=== PATIENT | female | born 1965 | race Caucasian/White ===

== ENCOUNTER → 2016-07-19 | Outpatient (CLI) | payer OTHER ==
[2016-07-20 13:47] LABS: Honeybee Venom IgE Class CLASS 0
[2016-07-20 13:48] LABS: White-Faced Hornet IgE <0.35 kU/L (<0.35); White-Faced Hornet IgE Class CLASS 0; Yellow Jacket IgE Class CLASS 0
[2016-07-24 13:54] LABS: Mis test requested (Blood) Wasp IgE
== END | disposition home or self-care (01) ==
LOC: LABWHC1 11:01
PROVIDERS: ATTEND Allergy & Immunology
DX: T63.441A Toxic effect of venom of bees, accidental (unintentional), initial encounter (principal)
CPT/HCPCS: 36415; 86003

== ENCOUNTER → 2016-07-24 | Outpatient (CLI) | payer OTHER ==
--- NOTE | 2016-07-24 08:03 | CT ---
EXAMINATION TYPE: CT abdomen pelvis w con DATE OF EXAM: 07/24/2016 7:37 AM COMPARISON: CT abdomen and pelvis June 09, 2015. HISTORY: Prior study on PACS. Patient had hernia surgery last year and has been having trouble with c ramping, bloating and constipation since surgery. Constipation and abdominal/pelvic pain per order. CT DLP: 342.30mGycm Automated Exposure Control for Dose Reduction was Utilized. CONTRAST: CT scan of the abdomen and pelvis is performed with oral and with IV Contrast, patient injected with 100 mL of Omnipaque 300. FINDINGS: Patient has very little intra-abdominal fat making evaluation somewhat suboptimal. LUNG BASES: No significant abnormality is appreciated. LIVER/GB: No significant abnormality is appreciated. PANCREAS: No significant abnormality is seen. SPLEEN: No significant abnormality is seen. ADRENALS: No significant abnormality is seen. KIDNEYS: No significant abnormality is seen. BOWEL: Surgical changes at diaphragmatic hiatus are consistent with Marcelino fundoplication surgery. No suspicious recurrent hiatal hernia is evident. The oral contrast reaches level of the splenic flexur e. There is no suspicious small bowel dilatation. There is somewhat prominent contrast and fecal fill ed colon up to level of the proximal to mid sigmoid colon which is somewhat redundant. No obvious con stricting mass is present. UTERUS/ADNEXA: No gross abnormality seen. LYMPH NODES: No greater than 1cm abdominal or pelvic lymph nodes are appreciated. OSSEOUS STRUCTURES: There are bilateral pars defects at L5 level. There is slight grade 1 anterolisth esis of L5 on S1 measuring roughly 5 mm from posterior vertebral body margin. There is moderate disc space narrowing at L5-S1 level present. OTHER: No significant additional abnormality is seen. IMPRESSION: Overall nonobstructive bowel gas pattern. There is persistent moderate to severe colonic fecal stasis involving predominantly the transverse and left colon with some involvement of the proxi mal redundant sigmoid colon. This has similar appearance to prior exam. No significant change. No sig nificant new findings seen.
== END | disposition home or self-care (01) ==
LOC: RADCTMAIN 07:09
PROVIDERS: ATTEND Internal Medicine
DX: K59.8 Other specified functional intestinal disorders (principal)
CPT/HCPCS: 74177; Q9967

== ENCOUNTER → 2017-09-05 | Outpatient (CLI) | payer OTHER ==
--- NOTE | 2017-09-06 08:45 | CT ---
EXAMINATION TYPE: CT abdomen pelvis w con DATE OF EXAM: 09/05/2017 COMPARISON: NONE INDICATION: ABDOMINAL PAIN X4 WEEKS DLP: 430.5 mGycm, Automated exposure control for dose reduction was used. CONTRAST: 100 mL of Omnipaque 300. Study performed with Oral Contrast TECHNIQUE: Axial images were obtained from above the diaphragm to the pubic rami in the axial plane a t 5 mm thick sections. Reconstructed images are reviewed on the computer in the coronal plane. FINDINGS: Limited CT sections are obtained the lung bases. The lung bases are clear. CT ABDOMEN: Liver: Normal Spleen: Normal Pancreas: Normal Adrenal glands: The adrenal glands are normal. Gallbladder: Normal Kidneys: No masses are evident. No hydronephrosis is present. No cysts are present. Delayed images were obtained through the kidneys, which remain unremarkable. Aorta: Vascular calcification is within the aorta. Inferior vena cava: Normal. CT PELVIS: Loops of bowel within the abdomen and pelvis are normal. There are loops of bowel which are incom pletely distended or lack oral contrast limiting their evaluation. No suspicious mesenteric inflammat ory changes are evident. Some fecal debris is within the sigmoid colon. Appendix: Normal as visualized. No inflammatory changes are adjacent. Urinary bladder: Decompressed with somewhat limited visualization. Genitourinary structures: Uterus is unremarkable. Adnexal regions are clear. No free fluid is within the pelvis. Osseous structures: No suspicious lytic or sclerotic lesions. IMPRESSIONS: 1. No suspicious changes to account for abdominal pain.
== END | disposition home or self-care (01) ==
LOC: RADCTMAIN 16:55
PROVIDERS: ATTEND Internal Medicine
DX: R10.9 Unspecified abdominal pain (principal); Z88.5 Allergy status to narcotic agent
CPT/HCPCS: 74177; Q9967

== ENCOUNTER 2017-10-11 09:51 | Day surgery (SDC) | payer OTHER ==
[2017-10-09 15:06] VITALS: BMI 22.4
[~2017-10-11 09:51] MED LIST: LIDOCAINE 1% 20 ML VIAL (10MG/ML) FOR IV START INTRADERMA PRN
[2017-10-11 10:20] VITALS: RESP 16; TEMP 98.1
[2017-10-11] MEDS: LACTATED RINGERS 1,000 ML IV SCH ×2 (10:27→11:07)
[2017-10-11] MEDS ORDERED: PROPOFOL 10 MG/ML 20 ML VIAL IV ONE (11:08)
--- NOTE | 2017-10-11 11:48 | P.PCN ---
Date of Procedure: 10/11/17 Procedure(s) Performed: Procedure: Total colonoscopy. Preoperative diagnosis: Abdominal pain and change in bowel habits. Postoperative diagnosis: Exam within normal limits. Preparation: HalfLytely prep. Sedation: Was provided by anesthesia. Brief clinical history: The patient is a 52-year-old female who I have evaluated by in October 2015 for abdominal pain, history of gastroesophageal reflux and change in bowel habits. At that time she had poor colon preparation but no obvious pathology. I recommended repeat exam in a short order of time. This time she is referred because of a week of abdominal pain and diarrhea. Normally, she would have a bowel movement every week or more. No bleeding or other alarm symptoms. Procedure: With the patient on her left lateral decubitus position and after informed consent and adequate sedation, the perianal area was inspected and it did not show any fissures or fistulas. There were no masses felt on digital rectal examination. The Olympus CFQ 160L video colonoscope was then inserted in the rectum in the usual fashion and advanced to the cecum. The preparation was fair. No obvious pathology was seen. The mucosa appeared healthy. I retroflexed the endoscope in the rectum before the endoscope was withdrawn. The patient tolerated the procedure well. Plan: The patient was reassured. Discussed dietary measures and symptomatic treatment. She will follow-up with you as planned and I recommended repeat exam in 10 years.
[2017-10-11 12:13] VITALS: BP 109/62; PULSE 59
== END 2017-10-11 12:25 | disposition home or self-care (01) ==
LOC: ORWHC2ENDO 09:51
DX: R10.9 Unspecified abdominal pain (principal); R19.4 Change in bowel habit; R19.7 Diarrhea, unspecified; G43.909 Migraine, unspecified, not intractable, without status migrainosus; G40.909 Epilepsy, unspecified, not intractable, without status epilepticus; E07.9 Disorder of thyroid, unspecified; Z88.5 Allergy status to narcotic agent; Z79.890 Hormone replacement therapy; Z79.899 Other long term (current) drug therapy
CPT/HCPCS: 45378; J2704

== ENCOUNTER → 2018-01-03 | Outpatient (CLI) | payer OTHER ==
[2018-01-03 13:10] LABS: Cholesterol 154 mg/dL (<200); HDL Cholesterol 57 mg/dL (40-60); LDL Cholesterol,Calculated 84 mg/dL (0-99); Triglycerides 65 mg/dL (<150)
== END | disposition home or self-care (01) ==
LOC: LABWHC1 11:17
PROVIDERS: ATTEND Nurse Practitioner Adult Health
DX: E78.5 Hyperlipidemia, unspecified (principal); B96.81 Helicobacter pylori [H. pylori] as the cause of diseases classified elsewhere
CPT/HCPCS: 36415; 80061; 83013

== ENCOUNTER 2018-02-25 11:48 | Day surgery (SDC) | payer OTHER ==
[2018-02-22 08:34] VITALS: BMI 20.5
[~2018-02-25 11:48] MED LIST changes: +LACTATED RINGERS 1,000 ML IV SCH
[2018-02-25 12:18] VITALS: TEMP 97.8
[2018-02-25] MEDS ORDERED: PROPOFOL 10 MG/ML 20 ML VIAL IV ONE (12:52)
[2018-02-25] MEDS ORDERED: LIDOCAINE 1% INJ 10MG/ML (20 ML MDV) ONE (12:52)
[2018-02-25] MEDS ORDERED: fentaNYL (PF) 50 MCG/ML 2 ML AMP ONE (12:52)
--- NOTE | 2018-02-25 13:20 | P.PCN ---
Date of Procedure: 02/25/18 Procedure(s) Performed: Procedure: Esophagogastroduodenoscopy and biopsy. Preoperative diagnosis: Epigastric pain and history of H. pylori infection and esophagitis. Postoperative diagnosis: 1. S/P Rodriguez fundoplication and no definite esophagitis. 2. Antral gastritis. 3. Multiple biopsies obtained from the antrum and esophagus. Preparation and sedation: Was provided by anesthesia. Brief clinical history: The patient is a 52-year-old female with history of H. pylori infection treated on 2 different occasions in the past. Her last upper endoscopy was in October 2015. She had normal colonoscopy in September of this year. The patient continues to have epigastric pains and this evaluation is scheduled to assess for peptic ulcer disease or other pathology. Procedure: With the patient on her left lateral decubitus position and after informed consent and adequate sedation, I passed the Olympus-GIF 160 video upper endoscope through the cricopharyngeus down the esophagus. The endoscope was then passed into the stomach which was insufflated with air and inspected in detail including the retroflex view in the cardia. Finally, the endoscope was passed through the pylorus into the duodenum. Pyloric channel, duodenal bulb, post bulbar area and descending duodenum appeared within normal limits. The stomach showed mottling, erythema and friability most noted in the antrum and prepyloric area. In the retroflex view in the cardia, there was evidence of prior fundoplication. The esophagus did not show any obvious esophagitis or strictures. I obtained biopsies from the antrum and esophagus then the endoscope was withdrawn. The patient tolerated the procedure well. Plan: The patient was reassured. Will await biopsy results. She will follow- up with you as planned and I will see her in follow-up at keep you updated on her progress.
[2018-02-25 13:37] VITALS: BP 106/70; PULSE 68; RESP 16
[2018-02-25] MEDS ORDERED: MIDAZOLAM 2 MG/2 ML VIAL IV PRN (18:56)
[2018-02-25] MEDS ORDERED: LIDOCAINE 1% 20 ML VIAL (10MG/ML) FOR IV START INTRADERMA PRN (18:56)
[2018-02-25] MEDS ORDERED: LACTATED RINGERS 1,000 ML IV SCH (19:00)
== END 2018-02-25 13:47 | disposition home or self-care (01) ==
LOC: ORWHC2ENDO 11:48
DX: K20.9 Esophagitis, unspecified (principal); K44.9 Diaphragmatic hernia without obstruction or gangrene; I20.9 Angina pectoris, unspecified; Z87.891 Personal history of nicotine dependence; E07.9 Disorder of thyroid, unspecified; G43.909 Migraine, unspecified, not intractable, without status migrainosus; G40.909 Epilepsy, unspecified, not intractable, without status epilepticus; Z79.890 Hormone replacement therapy; Z79.899 Other long term (current) drug therapy; Z88.5 Allergy status to narcotic agent
CPT/HCPCS: 88305; 88342; 43239; J2001; J3010; J2704

== ENCOUNTER 2018-03-14 07:40 | Day surgery (SDC) | payer OTHER ==
[2018-03-12 09:46] VITALS: BMI 20.5
[~2018-03-14 07:40] MED LIST changes: -LACTATED RINGERS 1,000 ML IV SCH; -LIDOCAINE 1% 20 ML VIAL (10MG/ML) FOR IV START INTRADERMA PRN; +SODIUM CHLORIDE 0.9% 1,000 ML IV SCH
[2018-03-14 08:25] VITALS: BP 125/64; RESP 18; TEMP 98.7
--- NOTE | 2018-03-14 15:58 | P.PCN ---
Preoperative Diagnosis: Symptoms Recurrent presyncope and syncope Twelve-lead ECG Sinus rhythm normal ND narrow QRS normal ST segments normal QT interval Tilt table test protocol Baseline blood pressure 96% 58 mmHg heart rate 59 beats a minute patient was tilted upright at an angle of 70 per protocol there is no change in the heart or blood pressure no evidence for neurocardiogenic syncope Impression Normal twelve-lead ECG Low blood pressure and no evidence for neuro cardiac syncope Suggest Check cortisol level
== END 2018-03-14 10:54 | disposition home or self-care (01) ==
LOC: CATHEP 07:40
PROVIDERS: ATTEND Internal Medicine Clinical Cardiac Electrophysiology
DX: R55 Syncope and collapse (principal); R07.89 Other chest pain; G89.29 Other chronic pain; R06.02 Shortness of breath; I65.23 Occlusion and stenosis of bilateral carotid arteries; F17.210 Nicotine dependence, cigarettes, uncomplicated; Z79.890 Hormone replacement therapy; Z79.899 Other long term (current) drug therapy; Z88.5 Allergy status to narcotic agent
CPT/HCPCS: 93660

== ENCOUNTER → 2018-04-09 | Outpatient (CLI) | payer OTHER ==
--- NOTE | 2018-04-09 11:50 | MM ---
Reason for exam: screening (asymptomatic). Last mammogram was performed 4 years and 5 months ago. History: Benign core biopsy of the right breast, 2009. Excisional biopsy of the right breast, 2009. Physical Findings: A clinical breast exam by your physician is recommended on an annual basis and results should be correlated with mammographic findings. MG 3D Screening Mammo W/Cad Bilateral CC and MLO view(s) were taken. Prior study comparison: November 17, 2013, bilateral MG diagnostic mammo w CAD KATIA. June 13, 2012, CAD bilateral diagnostic mammogram. The breast tissue is heterogeneously dense. This may lower the sensitivity of mammography. No significant changes when compared with prior studies. ASSESSMENT: Benign, BI-RAD 2 RECOMMENDATION: Routine screening mammogram of both breasts in 1 year.
--- NOTE | 2018-04-09 14:44 | BD ---
EXAMINATION TYPE: Axial Bone Density DATE OF EXAM: 04/09/2018 COMPARISON: NONE CLINICAL HISTORY: 52 YR OLD FEMALE.....ICD-10 CODE: M81.0 KNOWN OSTEOPOROSIS Height: 62.5 Weight: 120 FRAX RISK QUESTIONS: Secondary Osteoporosis: YES 4. Malnutrition: YES, ANOREXIA Current Tobacco Use: YES RISK FACTORS HISTORY OF: Active: FLOYD Diet low in dairy products/other sources of calcium: NO Postmenopausal woman: NATURAL AT 46 YRS OLD Lost more than 2 inches in height since high school: YES MEDICATIONS: Thyroid Medications: YES, SYNTHROID 75 MGS, 10+ YRS Additional Medications: XANAX, REFLUX MEDS, Additional History: NO ADDITIONAL TO NOTE EXAM MEASUREMENTS: Bone mineral densitometry was performed using the [employer] System. Bone mineral density as measured about the Lumbar spine is: ----- L1-L4(G/cm2): 0.812 T Score Values are as follows: ----- L1: -3.6 ----- L2: -2.7 ----- L3: -2.8 ----- L4: -3.3 ----- L1-L4: -3.1 Bone mineral density THIS IS HER FIRST BONE DENSITY TEST......BASELINE STUDY Bone mineral density about the R hip (g/cm2): 0.661 Bone mineral density about the L hip (g/cm2): 0.644 T Score values are as follows: -----R Neck: -2.9 -----L Neck: -3.0 -----R Total: -2.7 -----L Total: -2.9 Bone mineral density BASELINE STUDY FRAX%s: THERE IS A 11.0% CHANCE OF A MAJOR OSTEOPOROTIC FX AND A 4.9% FOR HIP FX......PROBABILITY OF FX IN 10 YRS TIME IMPRESSION: Osteoporosis (T Score less than -2.5). There is increased fracture risk and therapy is usually indicated based on age. Re-Screen 1-2 years. NOTE: T-SCORE=SD OF THE YOUNG ADULT MEAN.
== END | disposition home or self-care (01) ==
LOC: RADMAMWWP 06:49
PROVIDERS: ATTEND Internal Medicine
DX: Z12.31 Encounter for screening mammogram for malignant neoplasm of breast (principal); M81.0 Age-related osteoporosis without current pathological fracture
CPT/HCPCS: 77063; 77067; 77080

== ENCOUNTER → 2018-06-27 | Outpatient (CLI) | payer OTHER | END | disposition home or self-care (01) | LOC: LABWHC1 09:25 | PROVIDERS: ATTEND Nurse Practitioner Adult Health | DX: E78.2 Mixed hyperlipidemia (principal) | CPT/HCPCS: 36415; 80061; 82550; 84450; 84460 ==

== ENCOUNTER 2018-07-23 20:27 | Observation (INO) | payer OTHER ==
--- NOTE | 2018-07-23 21:55 | XR ---
EXAMINATION: XR chest 1V portable DATE AND TIME: 07/23/2018 9:50 PM CLINICAL INDICATION: PHH; chest pain TECHNIQUE: AP upright portable COMPARISON: 07/29/2015 FINDINGS: The lungs are clear. The pleural spaces are negative. The cardiac silhouette is not enlarged. The remainder of the mediastinal silhouette is unremarkable. The skeletal structures and soft tissues are negative for acute findings. IMPRESSION: NO ACUTE PROCESS.
[2018-07-23 21:59] LABS: Basophils % (A) 0 %; Eosinophils # (A) 0.2 k/uL (0-0.7); Eosinophils % (A) 2 %; HGB 12.9 gm/dL (11.4-16.0); Lymphocytes # (A) 2.5 k/uL (1.0-4.8); Lymphocytes % (A) 36 %; MCH 32.4 pg (25.0-35.0); MCHC 33.1 g/dL (31.0-37.0); MCV 97.8 fL (80.0-100.0); Mean Platelet Volume 7.9; Monocytes # (A) 0.5 k/uL (0-1.0); Monocytes % (A) 7 %; Neutrophils # (A) 3.8 k/uL (1.3-7.7); Neutrophils % (A) 53 %; Platelet Count 235 k/uL (150-450); RBC 3.99 m/uL (3.80-5.40); RDW 13.2 % (11.5-15.5); WBC 7.1 k/uL (3.8-10.6)
[2018-07-23 22:02] LABS: Albumin 3.9 g/dL (3.5-5.0); Calcium 8.9 mg/dL (8.4-10.2); Creatine Kinase 56 U/L (30-135); Potassium 3.9 mmol/L (3.5-5.1); Total Bilirubin 0.4 mg/dL (0.2-1.3); Total Protein 6.9 g/dL (6.3-8.2)
[2018-07-23 22:10] LABS: INR 0.9 (<1.2); Partial Thromboplastin Time 25.1 sec (22.0-30.0); Prothrombin Time 9.9 sec (9.0-12.0)
[2018-07-23 22:13] LABS: D-Dimer 0.61 mg/L FEU (<0.60)
[2018-07-23 22:14] LABS: Creatine Kinase MB 0.4 ng/mL (0.0-2.4); Troponin I <0.012 ng/mL (0.000-0.034)
--- NOTE | 2018-07-23 22:53 | ED ---
Chest Pain HPI - General Chief Complaint: Chest Pain Stated Complaint: Chest pain Time Seen by Provider: 07/23/18 21:21 Source: patient Mode of arrival: wheelchair Limitations: no limitations - History of Present Illness Initial Comments: This patient is a 53-year-old woman who presents to be evaluated for pressure on the left chest that she states started left are 4 PM. Her states that she was sitting on the couch at the onset. She states that it is similar to previous symptoms, which were previously diagnosed as angina, so she took nitroglycerin, twice but it didn't change the pain. The patient states that it is constant, moderate, and she has not noted worsening or relieving factors. There were no accompanying symptoms. The patient did have a stress test years ago at [facility] which was how they diagnosed with angina. She has had follow-up stress tests but has not ever had heart cath or OK. The patient does smoke one pack of cigarettes per day. Patient denies fever or chills, cough, dyspnea, diaphoresis, nausea or vomiting. MD Complaint: chest pain Onset/Timin -: hour(s) Onset: during rest (While sitting on the couch) Pain Location: left chest Pain Radiation: none Severity: moderate Quality: other (Pressure) Consistency: constant Improves With: nothing Worsens With: nothing Treatments Prior to Arrival: nitroglycerin - Related Data Home Medications Medication Instructions Recorded Confirmed Nitroglycerin Sl Tabs [Nitrostat] 0.4 mg SL Q5M PRN 12/18/13 07/23/18 Zonisamide [Zonegran] 100 mg PO DAILY 12/18/13 07/23/18 QUEtiapine FUMARATE 100 mg PO BID 08/04/15 07/23/18 Citalopram Hydrobromide [CeleXA] 20 mg PO DAILY 10/09/17 07/23/18 Venlafaxine HCl [Effexor XR] 37.5 mg PO DAILY 10/09/17 07/23/18 Famotidine [Pepcid] 20 mg PO BID 02/22/18 07/23/18 ALPRAZolam [Xanax] 0.25 mg PO TID 07/23/18 07/23/18 Alendronate Sodium 70 mg PO WE 07/23/18 07/23/18 Dicyclomine HCl 20 mg PO QID 07/23/18 07/23/18 Estradiol Cream [Estrace Cream 1 gm VAGINAL DAILY 07/23/18 07/23/18 0.01%] [place] Carbonate 150 mg PO HS 07/23/18 07/23/18 traZODone HCL [Desyrel] 100 mg PO HS 07/23/18 07/23/18 Previous Rx's Medication Instructions Recorded Levothyroxine Sodium [Synthroid] 100 mcg PO DAILY #30 tab 07/25/18 Allergies Allergy/AdvReac Type Severity Reaction Status Date / Time codeine Allergy Itching Verified 07/23/18 21:33 Review of Systems ROS Statement: Those systems with pertinent positive or pertinent negative responses have been documented in the HPI. ROS Other: All systems not noted in ROS Statement are negative. Constitutional: Denies: fever, chills Respiratory: Denies: cough, dyspnea Cardiovascular: Reports: chest pain. Denies: palpitations, edema Gastrointestinal: Denies: abdominal pain, nausea, vomiting Genitourinary: Denies: dysuria, hematuria Musculoskeletal: Denies: back pain Skin: Denies: rash Neurological: Denies: headache, weakness, numbness EKG Findings - EKG Results: EKG: WNL, sinus rhythm, normal axis, normal QRS, normal ST/T - Blocks, [place], Hypertrophy, ST Abn: Repolarization changes or abnormalities: nonspecific abnormality, ST segment, and/or T wave Past Medical History Past Medical History: Chest Pain / Angina, Musculoskeletal Disorder, Osteoarthritis (OA), Seizure Disorder, Thyroid Disorder Additional Past Medical History / Comment(s): MIGRAINES, DDD WITH BACK & NECK PAIN, LAST SEIZURE APPROX 2012 History of Any Multi-Drug Resistant Organisms: MRSA Date of last positivie culture/infection: 2003 MDRO Source:: boil buttocks Past Surgical History: Appendectomy, Tonsillectomy, Tubal Ligation Additional Past Surgical History / Comment(s): OVARIAN CYSTS REMOVED, EGD. JULIUS FUNDOPLASTY, COLONOSCOPY Past Anesthesia/Blood Transfusion Reactions: Motion Sickness, Postoperative Nausea & Vomiting (PONV) Additional Past Anesthesia/Blood Transfusion Reaction / Comment(s): slow to wake up. Past Psychological History: Anxiety, Depression Smoking Status: Former smoker Past Alcohol Use History: None Reported Past Drug Use History: None Reported - Past Family History Mother History Unknown: Yes Father History Unknown: Yes General Exam Limitations: no limitations General appearance: alert, in no apparent distress Head exam: Present: atraumatic, normocephalic Eye exam: Present: normal appearance. Absent: scleral icterus, conjunctival injection ENT exam: Present: mucous membranes dry Neck exam: Present: normal inspection Respiratory exam: Present: normal lung sounds bilaterally. Absent: respiratory distress, wheezes, rales, rhonchi, stridor Cardiovascular Exam: Present: regular rate, normal rhythm, normal heart sounds GI/Abdominal exam: Present: soft. Absent: distended, tenderness, guarding, rebound Extremities exam: Present: normal inspection, normal capillary refill. Absent: pedal edema, calf tenderness Back exam: Present: normal inspection Neurological exam: Present: alert Skin exam: Present: warm, dry, intact, normal color. Absent: rash Course Vital Signs 07/23/18 20:34 Temperature 99.3 F Pulse Rate 82 Respiratory 20 Rate Blood Pressure 113/70 O2 Sat by Pulse 97 Oximetry Disposition Clinical Impression: Chest pain Disposition: ADMITTED IP TO THIS HOSP Condition: Fair
[2018-07-24] MEDS ORDERED: HYDROcodone/APAP 5-325MG 1 EACH TAB PO PRN (08:21)
[2018-07-24] MEDS ORDERED: ALPRAZolam 0.25 MG TAB PO PRN (08:21)
[2018-07-24] MEDS ORDERED: NALOXONE 0.4 MG/ML 1 ML VIAL IV PRN (08:21)
[2018-07-24] MEDS ORDERED: ONDANSETRON 4 MG/2 ML VIAL IVP PRN (08:21)
[2018-07-24] MEDS ORDERED: ACETAMINOPHEN TAB 325 MG TAB PO PRN (08:21)
[2018-07-24] MEDS ORDERED: HEPARIN SODIUM,PORCINE 5,000 UNIT/ML 1 ML VIAL SQ STA (08:35)
[2018-07-24] MEDS ORDERED: FAMOTIDINE 20 MG TAB PO STA (08:36)
--- NOTE | 2018-07-24 09:24 | CT ---
EXAMINATION TYPE: CT chest angio for PE DATE OF EXAM: 07/24/2018 COMPARISON: Chest x-ray from yesterday. HISTORY: Chest pain CT DLP: 202.6 mGycm. Automated Exposure Control for Dose Reduction was Utilized. CONTRAST: CTA scan of the thorax is performed with IV Contrast, patient injected with 100 mL of Isovue 370, pul monary embolism protocol. MIP Images are created on CT scanner and reviewed. FINDINGS: LUNGS: There is 3 mm nodule right upper lobe axial image 39 there are additional smaller micronodules throughout the right upper lobe best appreciated on MIP images. No suspicious greater than 4 mm nodu les are evident. There is mild biapical parenchymal scarring. There is mild linear scarring or atelec tasis posteriorly left lung base. No suspicious consolidation or groundglass opacity is seen. No pleu ral effusion or pneumothorax is noted bilaterally. MEDIASTINUM: There is satisfactory enhancement of the pulmonary artery and its branches, there is no CT evidence for pulmonary embolism. There are no greater than 1 cm hilar or mediastinal lymph nodes. No cardiomegaly or pericardial effusion is seen. OTHER: There are surgical changes just below diaphragm epigastric region likely from prior Mareclino fun doplication surgery. IMPRESSION: 1. No CT evidence for acute pulmonary embolism. No suspicious acute pulmonary process.
--- NOTE | 2018-07-24 12:57 | P.CRDCN ---
History of Present Illness History of present illness: This is a pleasant 53-year-old female past medical history significant for chronic chest discomfort, chronic nicotine dependence and gastroesophageal reflux disease. She denies history of coronary artery disease , hypertension or dyslipidemia. She follows with Dr. Phipps in the office. We' ve been asked to see her in consultation for symptoms of chest pain. She states yesterday while helping her daughter go through some closed she started feeling a heavy pressure sensation in the left precordial region. This started at approximately 4 PM. She initially took sublingual nitroglycerin as prescribed by Dr. Phipps and achieved no relief of her discomfort. She continues to complain of same pain in the chest with no specific alleviating factors. Her pain is worse when she takes a deep breath, worse on palpation and worse with movement of her torso. She denies any associated shortness of breath, dizziness or palpitations. A couple of days ago she had some left arm numbness and tingling as well. She saw Dr. Phipps in the office recently with complaints of syncope and he ordered an event monitor that she just completed yesterday. Event reporting from the office is incomplete currently, however initial review of results reveals several episodes where she recorded feeling dizzy and rate revealed sinus mechanism at those times. We will await the final report for review. EKG reveals sinus mechanism with nonspecific T-wave abnormality. No acute changes noted. Chest x-ray is negative for an acute cardiopulmonary process. CT angio of chest negative for pulmonary embolism. Laboratory data reviewed, WBC 7.1, hemoglobin 12.9, platelets 235, d-dimer 0.61 , sodium 138, potassium 3.9, creatinine 0.99, magnesium 2.0, cardiac enzymes negative 1. Current cardiac medications include verapamil 180 mg daily. Most recent echocardiogram obtained in the office January 2018 reveals preserved left ventricular systolic function with ejection fraction 55% and no valvular abnormalities. Most recent stress test performed in the office November 2016 with a Valerie scan which was negative for reversible cardiac ischemia. Most recent carotid duplex performed in the office April 2018 reveals mild 16- 49% stenosis bilaterally. At the time of my exam: CONSTITUTIONAL: Denies fever. Denies chills. EYES: Denies blurred vision. Denies vision changes. Denies eye pain. EARS, NOSE, MOUTH & THROAT: Denies headache. Denies sore throat. Denies ear pain. CARDIOVASCULAR: Complains of pleuritic chest pain. Denies shortness of breath. Denies orthopnea. Denies PND. Denies palpitations. RESPIRATORY: Denies cough. GASTROINTESTINAL: Denies abdominal pain. Denies diarrhea. Denies constipation. Denies nausea. Denies vomiting. MUSCULOSKELETAL: Denies myalgias. INTEGUMENTARY: Denies pruitis. Denies rash. NEUROLOGIC: Denies numbness. Denies tingling. Denies weakness. PSYCHIATRIC: Denies anxiety. Denies depression. ENDOCRINE: Denies fatigue. Denies weight change. Denies polydipsia. Denies polyurina. GENITOURINARY: Denies burning, hematuria or urgency with micturation. HEMATOLOGIC: Denies history of anemia. Denies bleeding. Blood pressure 113/70 heart rate 82 afebrile maintaining oxygen saturation on room air GENERAL: This is a 53-year-old female in no apparent distress at the time of my examination. HEENT: Head is atraumatic, normocephalic. Pupils are equal, round. Sclerae anicteric. Conjunctivae are clear. Mucous membranes of the mouth are moist. Neck is supple. There is no jugular venous distention. No carotid bruit is heard. LUNGS: Clear to auscultation no wheezes, rales or rhonchi. No chest wall tenderness is noted on palpation or with deep breathing. HEART: Regular rate and rhythm without murmurs, rubs or gallops. S1 and S2 heard. ABDOMEN: Soft, nontender. Bowel sounds are heard. No organomegaly noted. EXTREMITIES: No evidence of peripheral edema and no calf tenderness noted. VASCULAR: Radial and dorsalis pedis pulses palpated, no evidence of clubbing. NEUROLOGIC: Patient is awake, alert and oriented x3. ASSESSMENT Pleuritic chest pain, ongoing. Chronic nicotine dependence Hypothyroidism PLAN Patient is very atypical for angina, most likely related to musculoskeletal strain. Continue to obtain serial enzymes to rule out an acute event. Check orthostatic vital signs and hydrate her with 0.9 NS at 75 cc/hour. We have requested the final official event monitor report from the [employer] and are currently awaiting those reports. Continue to observe overnight and we will make a decision regarding possible stress testing in the morning. Further recommendations to follow based on clinical course. Smoking cessation recommended. Thank you kindly for this consultation. Nurse Practitioner note has been reviewed, I agree with a documented findings and plan of care. Patient was seen and examined. Past Medical History Past Medical History: Chest Pain / Angina, Musculoskeletal Disorder, Osteoarthritis (OA), Seizure Disorder, Thyroid Disorder Additional Past Medical History / Comment(s): MIGRAINES, DDD WITH BACK & NECK PAIN, LAST SEIZURE APPROX 2012 History of Any Multi-Drug Resistant Organisms: MRSA Date of last positivie culture/infection: 2003 MDRO Source:: boil buttocks Past Surgical History: Appendectomy, Tonsillectomy, Tubal Ligation Additional Past Surgical History / Comment(s): OVARIAN CYSTS REMOVED, EGD. JULIUS FUNDOPLASTY, COLONOSCOPY Past Anesthesia/Blood Transfusion Reactions: Motion Sickness, Postoperative Nausea & Vomiting (PONV) Additional Past Anesthesia/Blood Transfusion Reaction / Comment(s): slow to wake up. Past Psychological History: Anxiety, Depression Smoking Status: Former smoker Past Alcohol Use History: None Reported Past Drug Use History: None Reported - Past Family History Mother History Unknown: Yes Father History Unknown: Yes Medications and Allergies Home Medications Medication Instructions Recorded Confirmed Type Nitroglycerin Sl Tabs [Nitrostat] 0.4 mg SL Q5M PRN 12/18/13 07/23/18 History Zonisamide [Zonegran] 100 mg PO DAILY 12/18/13 07/23/18 History QUEtiapine FUMARATE 100 mg PO BID 08/04/15 07/23/18 History Verapamil HCl [Verapamil ER] 180 mg PO QAM 11/02/15 07/23/18 History Citalopram Hydrobromide [CeleXA] 20 mg PO DAILY 10/09/17 07/23/18 History Venlafaxine HCl [Effexor XR] 37.5 mg PO DAILY 10/09/17 07/23/18 History Famotidine [Pepcid] 20 mg PO BID 02/22/18 07/23/18 History ALPRAZolam [Xanax] 0.25 mg PO TID 07/23/18 07/23/18 History Alendronate Sodium 70 mg PO WE 07/23/18 07/23/18 History Dicyclomine HCl 20 mg PO QID 07/23/18 07/23/18 History Estradiol Cream [Estrace Cream 1 gm VAGINAL DAILY 07/23/18 07/23/18 History 0.01%] Levothyroxine Sodium [Synthroid] 75 mcg PO DAILY 07/23/18 07/23/18 History [place] Carbonate 150 mg PO HS 07/23/18 07/23/18 History traZODone HCL [Desyrel] 100 mg PO HS 07/23/18 07/23/18 History Allergies Allergy/AdvReac Type Severity Reaction Status Date / Time codeine Allergy Itching Verified 07/23/18 21:33 Physical Exam Vitals: Vital Signs Temp Pulse Resp BP Pulse Ox 07/23/18 20:34 99.3 F 82 20 113/70 97 Intake and Output 07/23/18 07/24/18 07/24/18 22:59 06:59 14:59 Other: Weight 55.792 kg Results 07/23/18 21:30 07/23/18 21:30 Cardiac Enzymes 07/23/18 07/23/18 Range/Units 21:30 21:30 AST 21 (14-36) U/L CK-MB (CK-2) 0.4 (0.0-2.4) ng/mL Troponin I <0.012 (0.000-0.034) ng/mL Coagulation 07/23/18 Range/Units 21:30 PT 9.9 (9.0-12.0) sec APTT 25.1 (22.0-30.0) sec CBC 07/23/18 Range/Units 21:30 WBC 7.1 (3.8-10.6) k/uL RBC 3.99 (3.80-5.40) m/uL Hgb 12.9 (11.4-16.0) gm/dL Hct 39.0 (34.0-46.0) % Plt Count 235 (150-450) k/uL Comprehensive Metabolic Panel 07/23/18 Range/Units 21:30 Sodium 138 (137-145) mmol/L Potassium 3.9 (3.5-5.1) mmol/L Chloride 107 (98-107) mmol/L Carbon Dioxide 26 (22-30) mmol/L BUN 18 H (7-17) mg/dL Creatinine 0.99 (0.52-1.04) mg/dL Glucose 79 (74-99) mg/dL Calcium 8.9 (8.4-10.2) mg/dL AST 21 (14-36) U/L ALT 22 (9-52) U/L Alkaline Phosphatase 55 (38-126) U/L Total Protein 6.9 (6.3-8.2) g/dL Albumin 3.9 (3.5-5.0) g/dL Current Medications Generic Name Dose Route Start Last Admin Trade Name Freq PRN Reason Stop Dose Admin Acetaminophen 650 mg 07/24/18 08:21 Tylenol Tab PO Q6HR PRN Mild Pain or Fever > 100.5 Hydrocodone Bitart/Acetaminophen 1 each 07/24/18 08:21 [place] 5-325 PO Q4HR PRN Moderate Pain Alprazolam 0.25 mg 07/24/18 08:21 Xanax PO Q6HR PRN Anxiety Famotidine 20 mg 07/24/18 21:00 Pepcid PO BID PJ Heparin Sodium (Porcine) 5,000 unit 07/24/18 16:00 Heparin SQ Q8HR PJ Naloxone HCl 0.2 mg 07/24/18 08:21 Narcan IV Q2M PRN Opioid Reversal Ondansetron HCl 4 mg 07/24/18 08:21 Zofran IVP Q8HR PRN Nausea And Vomiting Zolpidem Tartrate 5 mg 07/24/18 21:00 Ambien PO HS PRN Insomnia Intake and Output 07/23/18 07/24/18 07/24/18 22:59 06:59 14:59 Other: Weight 55.792 kg 07/23/18 21:30 07/23/18 21:30
[2018-07-24 15:04] LABS: Creatine Kinase 50 U/L (30-135)
[2018-07-24 15:17] LABS: Creatine Kinase MB 0.5 ng/mL (0.0-2.4); Troponin I <0.012 ng/mL (0.000-0.034)
[2018-07-24] MEDS ORDERED: NITROGLYCERIN SL TABS 0.4 MG TAB SUBLINGUAL PRN (15:33)
[2018-07-24] MEDS ORDERED: ALPRAZolam 0.25 MG TAB PO SCH (16:00)
[2018-07-24] MEDS ORDERED: NON-FORMULARY DRUG (Alendronate Sodium [Alendronate Sodium] 70 MG) PO SCH (16:00)
--- NOTE | 2018-07-24 16:47 | P.HPIM ---
History of Present Illness 53-year-old female came in with the complaints of constant chest tenderness lasted for a few hours was not relieved by nitroglycerin 10/10 on the left side of the chest nonradiating. Not associated with the shortness of breath lightheadedness. Patient said had chest pain is nonpruritic to me but apparently was complained that is pleuritic to cardiology. D-dimer is 0.61 and 0.6 is normal for this lab. Patient stresses recently which she believes in [facility] will obtain medical records from there patient had a syncopal episode for which she follows with [facility]. Patient is hypotensive is on verapamil for migraine I believe. Patient is also mildly bradycardic, discontinued this verapamil because of hypotension which may have contributed to her syncopal episode although patient has a event monitor which shestill has. Patient denied any diaphoresis nausea lightheadedness her chest pain is not associated with food. Patient was evaluated by cardiology Review of Systems REVIEW OF SYSTEMS: CONSTITUTIONAL: No fever, no malaise, no fatigue. HEENT: No recent visual problems or hearing problems. Denied any sore throat. CARDIOVASCULAR: No orthopnea, PND, no palpitations, no syncope. PULMONARY: No shortness of breath, no cough, no hemoptysis. GASTROINTESTINAL: No diarrhea, no nausea, no vomiting, no abdominal pain. NEUROLOGICAL: No headaches, no weakness, no numbness. HEMATOLOGICAL: Denies any bleeding or petechiae. GENITOURINARY: Denies any burning micturition, frequency, or urgency. MUSCULOSKELETAL/RHEUMATOLOGICAL: Denies any joint pain, swelling, or any muscle pain. ENDOCRINE: Denies any polyuria or polydipsia. The rest of the 14-point review of systems is negative. Past Medical History Past Medical History: Chest Pain / Angina, Musculoskeletal Disorder, Osteoarthritis (OA), Seizure Disorder, Thyroid Disorder Additional Past Medical History / Comment(s): MIGRAINES, DDD WITH BACK & NECK PAIN, LAST SEIZURE APPROX 2012 History of Any Multi-Drug Resistant Organisms: MRSA Date of last positivie culture/infection: 2003 MDRO Source:: boil buttocks Past Surgical History: Appendectomy, Tonsillectomy, Tubal Ligation Additional Past Surgical History / Comment(s): OVARIAN CYSTS REMOVED, EGD. JULIUS FUNDOPLASTY, COLONOSCOPY Past Anesthesia/Blood Transfusion Reactions: Motion Sickness, Postoperative Nausea & Vomiting (PONV) Additional Past Anesthesia/Blood Transfusion Reaction / Comment(s): slow to wake up. Past Psychological History: Anxiety, Depression Smoking Status: Former smoker Past Alcohol Use History: None Reported Past Drug Use History: None Reported - Past Family History Mother History Unknown: Yes Father History Unknown: Yes Medications and Allergies Home Medications Medication Instructions Recorded Confirmed Type Nitroglycerin Sl Tabs [Nitrostat] 0.4 mg SL Q5M PRN 12/18/13 07/23/18 History Zonisamide [Zonegran] 100 mg PO DAILY 12/18/13 07/23/18 History QUEtiapine FUMARATE 100 mg PO BID 08/04/15 07/23/18 History Verapamil HCl [Verapamil ER] 180 mg PO QAM 11/02/15 07/23/18 History Citalopram Hydrobromide [CeleXA] 20 mg PO DAILY 10/09/17 07/23/18 History Venlafaxine HCl [Effexor XR] 37.5 mg PO DAILY 10/09/17 07/23/18 History Famotidine [Pepcid] 20 mg PO BID 02/22/18 07/23/18 History ALPRAZolam [Xanax] 0.25 mg PO TID 07/23/18 07/23/18 History Alendronate Sodium 70 mg PO WE 07/23/18 07/23/18 History Dicyclomine HCl 20 mg PO QID 07/23/18 07/23/18 History Estradiol Cream [Estrace Cream 1 gm VAGINAL DAILY 07/23/18 07/23/18 History 0.01%] Levothyroxine Sodium [Synthroid] 75 mcg PO DAILY 07/23/18 07/23/18 History [place] Carbonate 150 mg PO HS 07/23/18 07/23/18 History traZODone HCL [Desyrel] 100 mg PO HS 07/23/18 07/23/18 History Allergies Allergy/AdvReac Type Severity Reaction Status Date / Time codeine Allergy Itching Verified 07/23/18 21:33 Physical Exam Vitals: Vital Signs Temp Pulse Pulse Pulse Resp BP BP 07/24/18 15:36 98.2 F 65 18 07/24/18 13:26 97.6 F 55 L 16 07/24/18 12:00 56 L 16 103/55 07/24/18 10:05 98 F 49 L 16 07/23/18 20:34 99.3 F 82 20 113/70 BP BP BP BP Pulse Ox 07/24/18 15:36 97/63 98 07/24/18 13:26 93/63 98 07/24/18 12:00 105/59 103/52 96 07/24/18 10:05 95/49 07/23/18 20:34 97 Intake and Output 07/24/18 07/24/18 07/24/18 06:59 14:59 22:59 Other: Voiding Method Toilet Toilet # Voids 1 Weight 55.2 kg PHYSICAL EXAMINATION: GENERAL: The patient is alert and oriented x3, not in any acute distress. Well developed, well nourished. HEENT: Pupils are round and equally reacting to light. EOMI. No scleral icterus. No conjunctival pallor. Normocephalic, atraumatic. No pharyngeal erythema. No thyromegaly. CARDIOVASCULAR: S1 and S2 present. No murmurs, rubs, or gallops. PULMONARY: Chest is clear to auscultation, no wheezing or crackles. ABDOMEN: Soft, nontender, nondistended, normoactive bowel sounds. No palpable organomegaly. MUSCULOSKELETAL: No joint swelling or deformity. EXTREMITIES: No cyanosis, clubbing, or pedal edema. NEUROLOGICAL: Gross neurological examination did not reveal any focal deficits. SKIN: No rashes. Results CBC & Chem 7: 07/23/18 21:30 07/23/18 21:30 Labs: Abnormal Lab Results - Last 24 Hours (Table) 07/23/18 07/23/18 Range/Units 21:30 21:30 D-Dimer 0.61 H (<0.60) mg/L FEU BUN 18 H (7-17) mg/dL Thrombosis Risk Factor Assmnt - Choose All That Apply Any of the Below Risk Factors Present?: Yes Each Factor Represents 1 point: Age 41-60 years Other Risk Factors: No Thrombosis Risk Factor Assessment Total Risk Factor Score: 1 Thrombosis Risk Factor Assessment Level: Low Risk Assessment and Plan Plan: -chest pain: Rule out a concurrent syndromes cardiology evaluated the patient. Will obtain medical records from [facility] regarding her recent stress test patient chest pain is atypical appears to be musculoskeletal in nature further management of this chest pain as per cardiology. -Recent syncopal episode probably because of hypotension secondary to verapamil which will be discontinued, I believe this was started secondary for her migraine -seizure disorder -Hypothyroidism
[2018-07-24] MEDS: HEPARIN SODIUM,PORCINE 5,000 UNIT/ML 1 ML VIAL SQ SCH (18:11)
[2018-07-24] MEDS: FAMOTIDINE 20 MG TAB PO SCH (20:04)
[2018-07-24] MEDS: QUEtiapine 100 MG TAB PO SCH (20:04)
[2018-07-24 20:47] LABS: Creatine Kinase 51 U/L (30-135)
[2018-07-24 20:59] LABS: Creatine Kinase MB 0.4 ng/mL (0.0-2.4); Troponin I <0.012 ng/mL (0.000-0.034)
[2018-07-24] MEDS ORDERED: ZOLPIDEM 5 MG TAB PO PRN (21:00)
[2018-07-24] MEDS ORDERED: FAMOTIDINE 20 MG TAB PO SCH (21:00)
[2018-07-24] MEDS ORDERED: LITHIUM CARBONATE 150 MG CAP PO SCH (21:00)
[2018-07-25] MEDS: HEPARIN SODIUM,PORCINE 5,000 UNIT/ML 1 ML VIAL SQ SCH ×2 (00:29→09:34)
[2018-07-25] MEDS ORDERED: LEVOTHYROXINE 75 MCG TAB PO SCH (06:30)
[2018-07-25 07:17] LABS: Calcium 8.2 mg/dL (8.4-10.2); Potassium 4.5 mmol/L (3.5-5.1)
[2018-07-25 07:36] LABS: Creatine Kinase 38 U/L (30-135)
[2018-07-25 07:50] LABS: Creatine Kinase MB 0.2 ng/mL (0.0-2.4); Troponin I <0.012 ng/mL (0.000-0.034)
[2018-07-25 08:27] VITALS: RESP 18
[2018-07-25] MEDS ORDERED: ZONISAMIDE 100 MG CAP PO SCH (09:00)
[2018-07-25] MEDS ORDERED: VENLAFAXINE HCL ER 37.5 MG CAP PO SCH (09:00)
[2018-07-25] MEDS ORDERED: CITALOPRAM HYDROBROMIDE 20 MG TAB PO SCH (09:00)
[2018-07-25] MEDS: QUEtiapine 100 MG TAB PO SCH (09:34)
[2018-07-25] MEDS: FAMOTIDINE 20 MG TAB PO SCH (09:34)
--- NOTE | 2018-07-25 11:16 | P.PN ---
Subjective This is a pleasant 53-year-old female past medical history significant for chronic chest discomfort, chronic nicotine dependence and gastroesophageal reflux disease. She denies history of coronary artery disease , hypertension or dyslipidemia. She follows with Dr. Phipps in the office. She continues to complain of pleuritic pain in the mid-scapular region and anterior chest wall with movement. Blood pressure this morning 74/43 heart rate 48. Verapamil has been held since admission. Laboratory data reviewed, cardiac enzymes negative x4, sodium 141, potassium 4.5, creatinine 0.94. Orthostatic blood pressures negative. She is currently prescribed Xanax, Celexa, [place], lithium, Seroquel, Effexor, Ambien and Zonegran. This combination of medications may need to be reevaluated per primary care team or psychiatry for possible hypotensive effects. GENERAL: This is a 53-year-old female in no apparent distress at the time of my examination. HEENT: Head is atraumatic, normocephalic. Pupils are equal, round. Sclerae anicteric. Conjunctivae are clear. Mucous membranes of the mouth are moist. Neck is supple. There is no jugular venous distention. No carotid bruit is heard. LUNGS: Clear to auscultation no wheezes, rales or rhonchi. No chest wall tenderness is noted on palpation or with deep breathing. HEART: Regular rate and rhythm without murmurs, rubs or gallops. S1 and S2 heard. EXTREMITIES: No evidence of peripheral edema and no calf tenderness noted. ASSESSMENT Pleuritic chest pain, ongoing. Chronic nicotine dependence Hypothyroidism PLAN Discontinue verapamil for hypotension. Fluid bolus ongoing. Obtain 2D echocardiogram and doppler study to assess cardiac structure and function. Evaluation of multiple psychiatric medications recommended for potential hypotensive response. Follow up with Dr. Phipps upon discharge. Nurse Practitioner note has been reviewed, I agree with a documented findings and plan of care. Patient was seen and examined. Objective - Vital Signs Vital signs: Vital Signs Temp 97.9 F 07/25/18 03:55 Pulse 48 L 07/25/18 03:55 Resp 15 07/25/18 03:55 BP 84/48 07/25/18 04:41 Pulse Ox 97 07/25/18 03:55 Intake & Output 07/24/18 07/25/18 07/25/18 18:59 06:59 18:59 Intake Total 475 Balance 475 Weight 55.2 kg Intake: Oral 475 Other: Voiding Method Toilet Toilet # Voids 1 1 - Labs CBC & Chem 7: 07/23/18 21:30 07/25/18 06:45 Labs: Abnormal Lab Results - Last 24 Hours (Table) 07/25/18 Range/Units 06:45 Chloride 115 H (98-107) mmol/L Calcium 8.2 L (8.4-10.2) mg/dL
[2018-07-25 11:50] VITALS: BP 96/59; PULSE 71; TEMP 98.3
[2018-07-25 13:21] LABS: T4, Free (Free Thyroxine) 0.62 ng/dL (0.78-2.19)
--- NOTE | 2018-07-25 14:51 | P.DS ---
Providers Date of admission: 07/24/18 01:15 Attending physician: Paulette Iglesias Consults: 07/24/18 08:28 Consult Physician Routine Consulting Provider: Young Del Angel Consult Reason/Comments: chest pain Do you want consulting provider notified?: Yes Primary care physician: Physician Nonstaff Hospital Course: 53-year-old admitted the [facility] for chest pain rule out acute cholesterols patient has recent stress test and cardiac is not burning minimal stress test patient appears to have [place] skeletal chest pain. Patient had a syncopal episode patient is still hypotensive here receiving IV fluids at this can urine verapamil yesterday verapamil I believe is contributing to her pericardium hypotension. Patient need to use alternate medications for her migraine. Patient is also hypothyroid with elevated TSH and increasing the dose of levothyroxine patient is on lithium may be contributing to hypothyroidism. Patient appears to have significant the issues with her psychiatric conditions including bipolar disorder for which patient will need to follow up with psychiatric as an outpatient her lithium need to be titrated as we'll obtain will I will obtain lithium levels here but need to be followed as an outpatient. Patient had event monitor which she need to take it to her equipment lead. Patient is be cleared by cardiology here. PHYSICAL EXAMINATION: GENERAL: The patient is alert and oriented x3, not in any acute distress. Well developed, well nourished. HEENT: Pupils are round and equally reacting to light. EOMI. No scleral icterus. No conjunctival pallor. Normocephalic, atraumatic. No pharyngeal erythema. No thyromegaly. CARDIOVASCULAR: S1 and S2 present. No murmurs, rubs, or gallops. PULMONARY: Chest is clear to auscultation, no wheezing or crackles. ABDOMEN: Soft, nontender, nondistended, normoactive bowel sounds. No palpable organomegaly. MUSCULOSKELETAL: No joint swelling or deformity. EXTREMITIES: No cyanosis, clubbing, or pedal edema. NEUROLOGICAL: Gross neurological examination did not reveal any focal deficits. SKIN: No rashes. The rest of the chronic medical issues and hospital physician course please refer to my HPI from yesterday. Plan - Discharge Summary New Discharge Prescriptions: Continue Zonisamide [Zonegran] 100 mg PO DAILY Nitroglycerin Sl Tabs [Nitrostat] 0.4 mg SL Q5M PRN PRN Reason: Chest Pain QUEtiapine FUMARATE 100 mg PO BID Venlafaxine HCl [Effexor XR] 37.5 mg PO DAILY Citalopram Hydrobromide [CeleXA] 20 mg PO DAILY Famotidine [Pepcid] 20 mg PO BID Estradiol Cream [Estrace Cream 0.01%] 1 gm VAGINAL DAILY Alendronate Sodium 70 mg PO WE traZODone HCL [Desyrel] 100 mg PO HS [place] Carbonate 150 mg PO HS Dicyclomine HCl 20 mg PO QID ALPRAZolam [Xanax] 0.25 mg PO TID Changed Levothyroxine Sodium [Synthroid] 100 mcg PO DAILY #30 tab Discontinued Verapamil HCl [Verapamil ER] 180 mg PO QAM Discharge Medication List Nitroglycerin Sl Tabs [Nitrostat] 0.4 mg SL Q5M PRN 12/18/13 [History] Zonisamide [Zonegran] 100 mg PO DAILY 12/18/13 [History] QUEtiapine FUMARATE 100 mg PO BID 08/04/15 [History] Citalopram Hydrobromide [CeleXA] 20 mg PO DAILY 10/09/17 [History] Venlafaxine HCl [Effexor XR] 37.5 mg PO DAILY 10/09/17 [History] Famotidine [Pepcid] 20 mg PO BID 02/22/18 [History] ALPRAZolam [Xanax] 0.25 mg PO TID 07/23/18 [History] Alendronate Sodium 70 mg PO WE 07/23/18 [History] Dicyclomine HCl 20 mg PO QID 07/23/18 [History] Estradiol Cream [Estrace Cream 0.01%] 1 gm VAGINAL DAILY 07/23/18 [History] [place] Carbonate 150 mg PO HS 07/23/18 [History] traZODone HCL [Desyrel] 100 mg PO HS 07/23/18 [History] Levothyroxine Sodium [Synthroid] 100 mcg PO DAILY #30 tab 07/25/18 [Rx] Follow up Appointment(s)/Referral(s): Gary Phipps MD [STAFF PHYSICIAN] - 2 Weeks (pt to follow up with cardiology in two weeks. pt states she will follow up her equipment lead at [facility]. ) Nonstaff,Physician [Primary Care Provider] - 1-2 days (pt to call office and follow up with PCP in a few days.) Patient Instructions/Handouts: Dizziness (GEN) Discharge Disposition: HOME SELF-CARE
--- NOTE | 2018-07-26 07:10 | ECHOF ---
Referral Reason:cp, hypotension MEASUREMENTS -------- HEIGHT: 160.0 cm WEIGHT: 54.9 kg BP: IVSd: 0.7 cm (0.6 - 1.1) LVIDd: 3.7 cm (3.9 - 5.3) LVPWd: 1.2 cm (0.6 - 1.1) IVSs: 1.0 cm LVIDs: 2.7 cm LVPWs: 1.4 cm LAESV Index (A-L): 25.70 ml/m Ao Diam: 2.7 cm (2.0 - 3.7) AV Cusp: 1.3 cm (1.5 - 2.6) LA Diam: 1.7 cm (2.7 - 3.8) MV EXCURSION: 13.341 mm (> 18.000) MV EF SLOPE: 143 mm/s (70 - 150) EPSS: 1.0 cm MV E Jamal: 0.99 m/s MV DecT: 214 ms MV A Jamal: 0.47 m/s MV E/A Ratio: 2.11 RAP: 5.00 mmHg RVSP: 20.73 mmHg FINDINGS -------- Sinus rhythm. This was a technically good study. The left ventricular size is normal. Left ventricular wall thickness is normal. Overall left vent ricular systolic function is low-normal with, an EF between 50 - 55 %. The right ventricle is normal in size and function. The left atrial size is normal. The right atrium is normal in size. The aortic valve is trileaflet, and appears structurally normal. No aortic stenosis or regurgitation. The mitral valve leaflets are mildly thickened. Mild mitral regurgitation is present. Mild tricuspid regurgitation present. The right ventricular systolic pressure, as measured by Doppl er, is 20.73mmHg. Pulmonic valve appears structurally normal. The aortic root size is normal. The inferior vena cava is mildly dilated. The pericardium is normal. CONCLUSIONS -------- 1. Sinus rhythm. 2. This was a technically good study. 3. The left ventricular size is normal. 4. Left ventricular wall thickness is normal. 5. Overall left ventricular systolic function is low-normal with, an EF between 50 - 55 %. 6. The right ventricle is normal in size and function. 7. The left atrial size is normal. 8. The right atrium is normal in size. 9. The aortic valve is trileaflet, and appears structurally normal. No aortic stenosis or regurgitati on. 10. The mitral valve leaflets are mildly thickened. 11. Mild mitral regurgitation is present. 12. Mild tricuspid regurgitation present. 13. The right ventricular systolic pressure, as measured by Doppler, is 20.73mmHg. 14. Pulmonic valve appears structurally normal. 15. The aortic root size is normal. 16. The inferior vena cava is mildly dilated. 17. The pericardium is normal. COMMUNITY ARTIST: Nazanin Eduardo RDCS
== END 2018-07-25 13:29 | disposition home or self-care (01) ==
LOC: SUPCPDRO 20:27 → EC 20:27 → 1SOBS 07-24 01:15 → 2ORMAIN 07-24 07:36 → 1SOBS 07-24 12:48
PROVIDERS: ADMIT Internal Medicine; ATTEND Internal Medicine
DX: R07.89 Other chest pain (principal); R55 Syncope and collapse; I95.9 Hypotension, unspecified; E03.9 Hypothyroidism, unspecified; R07.81 Pleurodynia; R00.1 Bradycardia, unspecified; F31.9 Bipolar disorder, unspecified; F41.9 Anxiety disorder, unspecified; R94.6 Abnormal results of thyroid function studies; I95.2 Hypotension due to drugs; T46.1X5A Adverse effect of calcium-channel blockers, initial encounter; M19.90 Unspecified osteoarthritis, unspecified site; M54.2 Cervicalgia; M54.9 Dorsalgia, unspecified; F17.200 Nicotine dependence, unspecified, uncomplicated; K21.9 Gastro-esophageal reflux disease without esophagitis; G40.909 Epilepsy, unspecified, not intractable, without status epilepticus; Z86.14 Personal history of Methicillin resistant Staphylococcus aureus infection; Z88.5 Allergy status to narcotic agent; Z79.890 Hormone replacement therapy; Z79.899 Other long term (current) drug therapy
CPT/HCPCS: 96372 ×2; 99285; 36415; 93005; 93306; 85379; 84439; 80053; 80048; 84443; 82550 ×3; 82553 ×3; 83735; 84484 ×3; 85025; 85610; 85730; 71045; 71275; G0378 ×2; J1644 ×2; Q9967

== ENCOUNTER 2019-01-31 16:03 | Emergency (ER) | payer OTHER ==
[2019-01-31 16:14] VITALS: BP 109/64; PULSE 88; RESP 18; TEMP 99.5
[2019-01-31] MEDS ORDERED: SODIUM CHLORIDE 0.9% 500 ML 500 ML IV STA (19:28)
[2019-01-31] MEDS ORDERED: ONDANSETRON 4 MG/2 ML VIAL IVP STA (19:28)
[2019-01-31] MEDS ORDERED: KETOROLAC 30 MG/ML 1 ML VIAL IVP STA (19:28)
--- NOTE | 2019-01-31 19:47 | ED ---
Abdominal Pain HPI - General Chief Complaint: Abdominal Pain Stated Complaint: Upper abd pain, JORDON Time Seen by Provider: 01/31/19 19:02 Source: patient Mode of arrival: ambulatory Limitations: no limitations - History of Present Illness Initial Comments: Patient is a 53-year-old female presents emergency Department with abdominal pain. Patient has a chronic history of abdominal pain for approximately 2-3 years. Patient reports over the last few weeks the severity has increased as well as the nausea. Patient denies any episodes of vomiting but does report several episodes of diarrhea. Patient reports the pain is in the epigastric and right upper quadrant. Patient reports the pain is a 10 and constant. Patient reports the pain is exacerbated about 2-3 hours after eating food. Patient also reports abdominal bloating after food intake. Patient denies chest pain, chest tightness,, shortness of breath or chest palpitations. Patient denies back pain or flank pain. Patient reports increased urinary frequency but states that she has an overactive bladder which she is medically treated for. Patient denies hematuria, hematochezia or melena. - Related Data Home Medications Medication Instructions Recorded Confirmed Nitroglycerin Sl Tabs [Nitrostat] 0.4 mg SL Q5M PRN 12/18/13 07/23/18 Zonisamide [Zonegran] 100 mg PO DAILY 12/18/13 07/23/18 QUEtiapine FUMARATE 100 mg PO BID 08/04/15 07/23/18 Citalopram Hydrobromide [CeleXA] 20 mg PO DAILY 10/09/17 07/23/18 Venlafaxine HCl [Effexor XR] 37.5 mg PO DAILY 10/09/17 07/23/18 Famotidine [Pepcid] 20 mg PO BID 02/22/18 07/23/18 ALPRAZolam [Xanax] 0.25 mg PO TID 07/23/18 07/23/18 Alendronate Sodium 70 mg PO WE 07/23/18 07/23/18 Dicyclomine HCl 20 mg PO QID 07/23/18 07/23/18 Estradiol Cream [Estrace Cream 1 gm VAGINAL DAILY 07/23/18 07/23/18 0.01%] [place] Carbonate 150 mg PO HS 07/23/18 07/23/18 traZODone HCL [Desyrel] 100 mg PO HS 07/23/18 07/23/18 Previous Rx's Medication Instructions Recorded Levothyroxine Sodium [Synthroid] 100 mcg PO DAILY #30 tab 07/25/18 Famotidine [Pepcid] 20 mg PO BID #28 tablet 01/31/19 Allergies Allergy/AdvReac Type Severity Reaction Status Date / Time codeine Allergy Itching Verified 01/31/19 16:10 Review of Systems ROS Statement: Those systems with pertinent positive or pertinent negative responses have been documented in the HPI. ROS Other: All systems not noted in ROS Statement are negative. Past Medical History Past Medical History: Chest Pain / Angina, Musculoskeletal Disorder, Osteoarthritis (OA), Seizure Disorder, Thyroid Disorder Additional Past Medical History / Comment(s): MIGRAINES, DDD WITH BACK & NECK PAIN, LAST SEIZURE APPROX 2012 History of Any Multi-Drug Resistant Organisms: MRSA Date of last positivie culture/infection: 2003 MDRO Source:: boil buttocks Past Surgical History: Appendectomy, Tonsillectomy, Tubal Ligation Additional Past Surgical History / Comment(s): OVARIAN CYSTS REMOVED, EGD. JULIUS FUNDOPLASTY, COLONOSCOPY Past Anesthesia/Blood Transfusion Reactions: Motion Sickness, Postoperative Nausea & Vomiting (PONV) Additional Past Anesthesia/Blood Transfusion Reaction / Comment(s): slow to wake up. Past Psychological History: Anxiety, Depression Smoking Status: Former smoker Past Alcohol Use History: None Reported Past Drug Use History: None Reported - Past Family History Mother History Unknown: Yes Father History Unknown: Yes General Exam Limitations: no limitations General appearance: alert, in no apparent distress Head exam: Present: atraumatic, normocephalic, normal inspection Eye exam: Present: normal appearance, PERRL, EOMI Pupils: Present: normal accommodation ENT exam: Present: normal exam, normal oropharynx, mucous membranes moist, TM's normal bilaterally, normal external ear exam Neck exam: Present: normal inspection, full ROM. Absent: lymphadenopathy Respiratory exam: Present: normal lung sounds bilaterally Cardiovascular Exam: Present: regular rate, normal rhythm, normal heart sounds GI/Abdominal exam: Present: soft, tenderness (Epigastric and right upper quadrant tenderness. Positive Winn sign.), normal bowel sounds. Absent: guarding, rebound, rigid, pulsatile mass Extremities exam: Present: normal inspection, full ROM, normal capillary refill, other (+2 dorsalis pedis and posterior tibialis bilaterally) Back exam: Present: normal inspection, full ROM. Absent: tenderness, CVA tenderness (R), CVA tenderness (L) Neurological exam: Present: alert, oriented X3 Psychiatric exam: Present: normal affect, normal mood Skin exam: Present: warm, intact, normal color Course Vital Signs 01/31/19 16:10 Temperature 99.5 F Pulse Rate 88 Respiratory 18 Rate Blood Pressure 109/64 O2 Sat by Pulse 94 L Oximetry Medical Decision Making - Medical Decision Making Patient is a 53-year-old female presented to emergency department with abdominal pain. Right upper quadrant ultrasound is unremarkable. CBC CMP and UA are unremarkable. At this point I suspect the patient to be experiencing biliary colic. I have low suspicion for acute abdominal pathology due to the chronicity of the symptoms. Patient advised to follow-up with for further medical management. Patient's vitals are stable. Patient will be discharged with Pepcid for possible GERD. Strict return parameters were thoroughly discussed with patient who is understanding and agreeable. Case discussed with physician. - Lab Data Result diagrams: 01/31/19 19:44 01/31/19 19:44 Lab Results 01/31/19 01/31/19 01/31/19 Range/Units 19:44 19:44 19:44 WBC 6.8 (3.8-10.6) k/uL RBC 3.95 (3.80-5.40) m/uL Hgb 12.4 (11.4-16.0) gm/dL Hct 37.4 (34.0-46.0) % MCV 94.7 (80.0-100.0) fL MCH 31.4 (25.0-35.0) pg MCHC 33.2 (31.0-37.0) g/dL RDW 14.1 (11.5-15.5) % Plt Count 241 (150-450) k/uL Neutrophils % 50 % Lymphocytes % 39 % Monocytes % 7 % Eosinophils % 1 % Basophils % 1 % Neutrophils # 3.4 (1.3-7.7) k/uL Lymphocytes # 2.6 (1.0-4.8) k/uL Monocytes # 0.4 (0-1.0) k/uL Eosinophils # 0.1 (0-0.7) k/uL Basophils # 0.0 (0-0.2) k/uL Sodium 139 (137-145) mmol/L Potassium 3.9 (3.5-5.1) mmol/L Chloride 106 (98-107) mmol/L Carbon Dioxide 26 (22-30) mmol/L Anion Gap 7 mmol/L BUN 16 (7-17) mg/dL Creatinine 0.96 (0.52-1.04) mg/dL Est GFR (CKD-EPI)AfAm 78 (>60 ml/min/1.73 sqM) Est GFR (CKD-EPI)NonAf 68 (>60 ml/min/1.73 sqM) Glucose 84 (74-99) mg/dL Calcium 9.0 (8.4-10.2) mg/dL Total Bilirubin 0.4 (0.2-1.3) mg/dL AST 22 (14-36) U/L ALT 19 (9-52) U/L Alkaline Phosphatase 54 (38-126) U/L Total Protein 7.4 (6.3-8.2) g/dL Albumin 4.4 (3.5-5.0) g/dL Amylase 61 (30-110) U/L Lipase 65 (23-300) U/L Urine Color Yellow Urine Appearance Clear (Clear) Urine pH 5.5 (5.0-8.0) Ur Specific [place] 1.024 (1.001-1.035) Urine Protein Trace H (Negative) Urine Glucose (UA) Negative (Negative) Urine Ketones Negative (Negative) Urine Blood Negative (Negative) Urine Nitrite Negative (Negative) Urine Bilirubin Negative (Negative) Urine Urobilinogen <2.0 (<2.0) mg/dL Ur Leukocyte Esterase Negative (Negative) Disposition Clinical Impression: Biliary colic Disposition: HOME SELF-CARE Condition: Stable Instructions (If sedation given, give patient instructions): Abdominal Pain (ED) Additional Instructions: Please take prescribed medication as directed. Please follow-up with Dr. Hernandez. Please return to emergency department if symptoms worsen. Prescriptions: Famotidine [Pepcid] 20 mg PO BID #28 tablet Is patient prescribed a controlled substance at d/c from ED?: No Referrals: Jasmyne Brooks MD [Primary Care Provider] - 1-2 days Time of Disposition: 20:54
[2019-01-31 19:56] LABS: Basophils % (A) 1 %; Eosinophils # (A) 0.1 k/uL (0-0.7); Eosinophils % (A) 1 %; HCT 37.4 % (34.0-46.0); HGB 12.4 gm/dL (11.4-16.0); Lymphocytes # (A) 2.6 k/uL (1.0-4.8); Lymphocytes % (A) 39 %; MCH 31.4 pg (25.0-35.0); MCHC 33.2 g/dL (31.0-37.0); MCV 94.7 fL (80.0-100.0); Mean Platelet Volume 8.3; Monocytes # (A) 0.4 k/uL (0-1.0); Monocytes % (A) 7 %; Neutrophils # (A) 3.4 k/uL (1.3-7.7); Neutrophils % (A) 50 %; Platelet Count 241 k/uL (150-450); RBC 3.95 m/uL (3.80-5.40); RDW 14.1 % (11.5-15.5); WBC 6.8 k/uL (3.8-10.6)
[2019-01-31 19:57] LABS: Appearance,Urine Clear (Clear); Bilirubin,Urine Negative (Negative); Blood,Urine Negative (Negative); Color,Urine Yellow; Glucose,Urine (UA) Negative (Negative); Ketones,Urine Negative (Negative); Leukocyte Esterase,Urine Negative (Negative); Nitrite,Urine Negative (Negative); PH, Urine 5.5 (5.0-8.0); Protein,Urine Trace (Negative); Specific Gravity,Urine 1.024 (1.001-1.035); Urobilinogen,Urine <2.0 mg/dL (<2.0)
[2019-01-31 20:01] LABS: Albumin 4.4 g/dL (3.5-5.0); Potassium 3.9 mmol/L (3.5-5.1); Total Bilirubin 0.4 mg/dL (0.2-1.3); Total Protein 7.4 g/dL (6.3-8.2)
--- NOTE | 2019-01-31 20:07 | US ---
EXAMINATION TYPE: US gallbladder DATE OF EXAM: 01/31/2019 COMPARISON: CT 2018 CLINICAL HISTORY: Pain. RUQ pain and nausea x couple weeks EXAM MEASUREMENTS: Liver Length: 16.5 cm Gallbladder Wall: 0.2 cm CBD: 0.3 cm Right Kidney: 9.8 x 3.8 x 4.0 cm Pancreas: visualized portions wnl, tail obscured by overlying midline bowel gas Liver: wnl Gallbladder: wnl Evidence for sonographic Winn's sign: yes CBD: wnl Right Kidney: wnl IMPRESSION: Normal gallbladder sonogram. No dilated ducts.
== END 2019-01-31 21:20 | disposition home or self-care (01) ==
LOC: EC 16:03
DX: K80.50 Calculus of bile duct without cholangitis or cholecystitis without obstruction (principal); M19.90 Unspecified osteoarthritis, unspecified site; G40.909 Epilepsy, unspecified, not intractable, without status epilepticus; F32.9 Major depressive disorder, single episode, unspecified; F41.9 Anxiety disorder, unspecified; Z86.14 Personal history of Methicillin resistant Staphylococcus aureus infection; Z87.891 Personal history of nicotine dependence; Z79.3 Long term (current) use of hormonal contraceptives; Z79.899 Other long term (current) drug therapy; Z88.5 Allergy status to narcotic agent; Z90.49 Acquired absence of other specified parts of digestive tract
CPT/HCPCS: 36415; 80053; 82150; 83690; 85025; 81003; 76705; 99284; 96374; 96375; 96361; J2405; J1885

== ENCOUNTER → 2020-12-01 | Outpatient (CLI) | payer OTHER ==
--- NOTE | 2020-12-01 16:29 | XR ---
EXAMINATION TYPE: XR chest 2V DATE OF EXAM: 12/01/2020 COMPARISON: 07/23/2018 HISTORY: Bronchitis TECHNIQUE: Frontal and lateral views of the chest are obtained. FINDINGS: There is no focal air space opacity, pleural effusion, or pneumothorax seen. The cardiac silhouette size is within normal limits. The osseous structures are intact. IMPRESSION: No acute pulmonary disease.
--- NOTE | 2020-12-02 12:04 | MM ---
Reason for exam: clinical finding. Last mammogram was performed 2 years and 8 months ago. History: Patient is postmenopausal. Benign core biopsy of the right breast, 2009. Excisional biopsy of the right breast, 2008. Indicated problem(s): pain in the left breast. Physical Findings: Nurse did not find any significant physical abnormalities on exam. MG Diagnostic Mammo w CAD KATIA Bilateral CC and MLO view(s) were taken. Prior study comparison: April 09, 2018, bilateral MG 3d screening mammo w/cad. November 17, 2013, bilateral MG diagnostic mammo w CAD KATIA. The breast tissue is extremely dense which could obscure a lesion on mammography. Right breast, no findings, return to screening. Left breast ultrasound at site of concern/question palpable lump. These results were verbally communicated with the patient and result sheet given to the patient on 12/01/20. ASSESSMENT: Incomplete: need additional imaging evaluation, BI-RAD 0 RECOMMENDATION: Ultrasound of the left breast.
--- NOTE | 2020-12-02 12:06 | USB ---
Reason for exam: additional evaluation requested from abnormal screening. History: Patient is postmenopausal. Benign core biopsy of the right breast, 2009. Excisional biopsy of the right breast, 2009. US Breast Limited LT Left limited breast ultrasound including focal area of concern, retroareolar and axilla demonstrates no cystic or solid lesion seen. Dense breast tissue. No cyst or mass at 3-6 o'clock visualized. These results were verbally communicated with the patient and result sheet given to the patient on 12/01/20. ASSESSMENT: Benign, BI-RAD 2 RECOMMENDATION: Routine screening mammogram of both breasts in 1 year. (3D)
--- NOTE | 2020-12-02 12:41 | BD ---
EXAMINATION TYPE: Axial Bone Density DATE OF EXAM: 12/01/2020 COMPARISON: 04/09/2018 CLINICAL HISTORY: Postmenopausal female Height: 62.7 IN Weight: 123 LBS FRAX RISK QUESTIONS: Family History (Parent hip fracture): YES FATHER Secondary Osteoporosis: 2. Hyperthyroidism: YES Current Tobacco Use: YES RISK FACTORS HISTORY OF: Active: YES Diet low in dairy products/other sources of calcium: YES Postmenopausal woman: AGE 46 MEDICATIONS: Thyroid Medications: YES Which medication: Synthroid How Lon+ YEARS Osteoporosis Medications: YES Which medication: ALENDRONATE How Lon YEAR Additional Medications: NITROGLYCERIN, TRIAMCINOLONE, ALPRAZOLAM, ROPINIROLE,LEVOTHYROXINE, QUETIAPIN E, TRAZODONE, FAMOTIDINE, DICYCLOMINE, SUMATRIPTAN, PANTOPRAZOLE, LEVOCETIRIZINE, AMITRIPTYLINE, AMOS DRONATE, VENTOLIN EXAM MEASUREMENTS: Bone mineral densitometry was performed using the [employer] System. Bone mineral density as measured about the Lumbar spine is: ----- L1-L4(G/cm2): 0.850 T Score Values are as follows: ----- L2: -2.7 ----- L3: -2.0 ----- L4: -3.2 ----- L1-L4: -2.7 Bone mineral density has: Increased 4.7% since study of: 04/09/2018 Bone mineral density about the R hip (g/cm2): 0.641 Bone mineral density about the L hip (g/cm2): 0.650 T Score values are as follows: -----R Neck: -2.9 -----L Neck: -2.8 -----R Total: -2.4 -----L Total: -2.6 Bone mineral density has: Increased 6.4% since study of: 04/09/2018 IMPRESSION: Osteoporosis (T Score less than -2.5) remains present. There remains increased fracture risk and therapy is usually indicated based on age. Re-Screen 1-2 years. NOTE: T-SCORE=SD OF THE YOUNG ADULT MEAN.
== END | disposition home or self-care (01) ==
LOC: RADMAMWWP 10:58
PROVIDERS: ATTEND Internal Medicine
DX: R92.2 Inconclusive mammogram (principal); Z78.0 Asymptomatic menopausal state; M81.0 Age-related osteoporosis without current pathological fracture; J40 Bronchitis, not specified as acute or chronic
CPT/HCPCS: 71046; 77066; 77080

== ENCOUNTER → 2021-01-10 | Outpatient (CLI) | payer OTHER ==
--- NOTE | 2021-01-10 20:38 | FL ---
EXAMINATION TYPE: FL UGI air w small bowel DATE OF EXAM: 01/10/2021 COMPARISON: NONE HISTORY: 55-year-old female R1 4.0, bloating. Patient reports history of irritable bowel syndrome. Ev aluate for inflammatory bowel disease. TECHNIQUE: A double contrast UGI study is performed with small bowel follow through. A total of 3 m inutes 43 seconds of fluoroscopic time was utilized during procedure and 64 images obtained. FINDINGS: [employer] image of the abdomen shows nonobstructive bowel gas pattern but with moderate to large stool in the left side of the colon. The esophagus shows normal course, caliber, and motility with appropriate emptying into the stomach. No mucosal lesion or filling defect is identified. There is postsurgical change of Rodriguez fundoplication. The wrap appears intact located below the diap hragm. The stomach shows normal distensibility, peristalsis, and mucosal folds. No evidence of any mass or ulcer disease. No significant esophageal reflux was seen during real time performance of this study. The duodenal bulb and sweep are unremarkable. The small bowel study shows normal transit to the colon in approximately one hour. There is normal mu cosal fold pattern throughout the small bowel. There is no evidence of any stricture or filling defe ct noted. The terminal ileum is unremarkable. IMPRESSION: 1. Status post Rodriguez fundoplication. The wrap remains intact. Otherwise, unremarkable upper GI porti on of the exam. 2. Normal small bowel transit time of approximately one hour. Normal small bowel mucosal fold pattern . The terminal ileum appears unremarkable.
== END | disposition home or self-care (01) ==
LOC: RADFLMAIN 08:33
PROVIDERS: ATTEND Internal Medicine
DX: R14.0 Abdominal distension (gaseous) (principal); K58.9 Irritable bowel syndrome, unspecified
CPT/HCPCS: 74240; 74248

== ENCOUNTER → 2021-10-13 | Outpatient (CLI) | payer OTHER ==
--- NOTE | 2021-10-13 08:52 | US ---
EXAMINATION TYPE: US abdomen complete DATE OF EXAM: 10/13/2021 COMPARISON: CT dated 09/05/2017 CLINICAL HISTORY: R10.9 ABD PAIN. EXAM MEASUREMENTS: Liver Length: 9.4 cm Gallbladder Wall: 0.2 cm CBD: 0.2 cm Spleen: 7.8 cm Right Kidney: 9.8 x 4.1 x 5.4 cm Left Kidney: 9.4 x 4.5 x 5.0 cm Extensive overlying bowel gas. Pancreas: Tail somewhat obscured by overlying bowel gas Liver: wnl Gallbladder: wnl Evidence for sonographic Winn's sign: no CBD: wnl Spleen: wnl Right Kidney: Somewhat obscured by overlying bowel gas, portions visualized wnl Left Kidney: Somewhat obscured by overlying bowel gas, portions visualized wnl Upper IVC: wnl Abd Aorta: wnl The liver is homogenous. The intrahepatic portion of the IVC and proximal abdominal aorta are within normal limits. There is no evidence of cholelithiasis. Common bile duct is unremarkable. The visu alized portions of the pancreas are homogenous. The spleen is unremarkable. Kidneys are symmetric a nd free of hydronephrosis. No renal lesions are seen. IMPRESSION: Unremarkable abdominal ultrasound.
== END | disposition home or self-care (01) ==
LOC: RADUSWWP 07:04
PROVIDERS: ATTEND Family Medicine
DX: R10.9 Unspecified abdominal pain (principal)
CPT/HCPCS: 76700

== ENCOUNTER → 2021-11-29 | Outpatient (CLI) | payer OTHER ==
--- NOTE | 2021-11-29 19:48 | NM ---
EXAMINATION TYPE: NM gastric emptying static DATE OF EXAM: 11/29/2021 COMPARISON: NONE HISTORY: 56-year-old female epigastric pain, constipation/diarrhea, bloating, R10.13 TECHNIQUE: Following administration of 1.9 mCi Tc 99m Sulfur Colloid with 4 ounces egg beaters, 1 pie ce of toast with jam, 6 ounces water, projection images of the abdomen were obtained 10 minutes post ingestion. FINDINGS: Patient Emptying Values 1 Hour 30 % (70-10%) 2 Hours 41 % (> 40%) 3 Hours 48 % (> 70%) 4 Hours 50 % (> 90%) Gastroesophageal reflux: None IMPRESSION: Gastric emptying is initially normal up to 2 hours but then slows down considerably at 3 and 4 hours. Findings suggest some degree of gastroparesis.
== END | disposition home or self-care (01) ==
LOC: RADNMMAIN 06:43
PROVIDERS: ATTEND Family Medicine
DX: K59.00 Constipation, unspecified (principal)
CPT/HCPCS: 78264; A9541